=== PATIENT | male | born 1955 | race African-American/Black ===

== ENCOUNTER 2024-12-21 17:08 | Inpatient (IN) | payer BC, OTHER ==
[~2024-12-21] VITALS: Ht 167.6 cm; Wt 108.9 kg
[2024-12-21 20:19] LABS: PLATELET COUNT (AUTO) 252 K/uL (152-348); RED BLOOD CELL COUNT(AUTO) 4.50 MIL/uL (4.06-5.63); RED CELL DISTRIBUTION WIDTH 13.6 % (12.1-16.2); WHITE BLOOD COUNT (AUTO) 13.2 K/uL (3.6-10.2)
[2024-12-21 20:29] LABS: CREATININE 0.9 mg/dL (0.6-1.3); SODIUM SERUM 138.0 mmol/L (136-145); UREA NITROGEN, BLOOD 10.0 mg/dL (7-18)
[2024-12-21 20:35] LABS: ASPARTATE AMINOTRANSFERASE 11.0 U/L (15-37); TOTAL PROTEIN, SERUM 6.4 g/dL (6.4-8.2)
[2024-12-21] MEDS: IV NS 1000 ML 1,000 ML IV ONE (21:21)
[2024-12-21 21:52] LABS: ABG BASE EXCESS 1.0 mmol/L (-2.0-3.0); ABG HCO3 25.8 mmol/L (21.0-28.0); ABG PCO2 41.8 mmHg (35.0-48.0); ABG PH 7.409 (7.350-7.450); ABG PO2 76.5 mmHg (83.0-108.0); ABG SITE LEFT RADIAL; ABG TOTAL HEMOGLOBIN 14.2 G/dL (13.5-17.5); AaDO2 95.4 mmHg; FIO2 21.0 %
[2024-12-21 21:58] LABS: ETHANOL < 3 MG/DL (0-10)
[2024-12-21 22:19] LABS: *BILIRUBIN,URIN NEGATIVE (NEGATIVE); *BLOOD, URINE NEGATIVE (NEGATIVE); *CLARITY,URINE CLEAR (CLEAR); *COLOR,URINE YELLOW (YELLOW); *KETONES,URINE TRACE (NEGATIVE); *PROTEIN,URINE NEGATIVE (NEGATIVE); *UROBILINOGEN,URINE 0.2 E.U./dl (NORMAL); LEUKOCYTE ESTERASE ,URINE NEGATIVE (NEGATIVE); NITRITE, URINE NEGATIVE (NEGATIVE)
[2024-12-21 22:27] LABS: *AMPHETAMINE, URINE NEGATIVE (NEGATIVE); *BARBITURATE, URINE NEGATIVE (NEGATIVE); *BENZODIAZEPINE, URINE NEGATIVE (NEGATIVE); *CANNABINOID, URINE NEGATIVE (NEGATIVE); *COCCAINE, URINE POSITIVE (NEGATIVE); *OPIATE, URINE NEGATIVE (NEGATIVE); *PHENCYCLIDINE SCREEN,URINE NEGATIVE (NEGATIVE); FENTANYL, URINE NEGATIVE (NEGATIVE)
[2024-12-21 22:31] LABS: UGLUCOSE 2+ (NEGATIVE)
[2024-12-21 22:55] LABS: SQUAMOUS EPITHELIAL CELL,UR FEW /HPF (NONE SEEN)
[2024-12-21 22:57] LABS: URINE AMORPHOUS URATE FEW /HPF
[2024-12-22] VITALS (10 sets, daily range): BP systolic 139–148; BP diastolic 78–89; TEMP 97.5–98; O2SAT 95–100
[2024-12-22] MEDS ORDERED: ALBUTEROL SULFATE 2.5 MG/3 ML NEBU ONE (04:18)
[2024-12-22] MEDS ORDERED: ACETAMINOPHEN 325 MG TABLET PO PRN (05:45)
[2024-12-22] MEDS ORDERED: ONDANSETRON 4 MG/2 ML VIAL IV PRN (05:45)
[2024-12-22] MEDS ORDERED: MAGNESIUM HYDROXIDE 30 ML LIQUID UDC PO PRN (05:45)
[2024-12-22] MEDS ORDERED: ALBU8.5H8 IH (05:59)
[2024-12-22] MEDS: ALBUTEROL SULFATE 2.5 MG/3 ML NEBU NEB ONE (06:11)
[2024-12-22] MEDS: PANTOPRAZOLE SODIUM 40 MG TABLET.DR PO SCH (06:38)
[2024-12-22 07:32] LABS: PLATELET COUNT (AUTO) 239 K/uL (152-348); RED BLOOD CELL COUNT(AUTO) 4.50 MIL/uL (4.06-5.63); RED CELL DISTRIBUTION WIDTH 13.6 % (12.1-16.2); WHITE BLOOD COUNT (AUTO) 12.7 K/uL (3.6-10.2)
[2024-12-22 07:47] LABS: ASPARTATE AMINOTRANSFERASE 13.0 U/L (15-37); CREATININE 0.9 mg/dL (0.6-1.3); SODIUM SERUM 137.0 mmol/L (136-145); TOTAL PROTEIN, SERUM 7.0 g/dL (6.4-8.2); UREA NITROGEN, BLOOD 14.0 mg/dL (7-18)
[2024-12-22] MEDS: IPRATROPIUM BROMIDE 0.5 MG/2.5 ML NEBU NEB PRN (08:24)
[2024-12-22] MEDS: ALBUTEROL SULFATE 2.5 MG/3 ML NEBU NEB PRN (08:24)
[2024-12-22] MEDS: GUAIFENESIN LA 600 MG TABLET.SA PO SCH (10:05)
[2024-12-22] MEDS: ENOXAPARIN SODIUM 40 MG/0.4 ML DISP.SYRIN SQ SCH (10:06)
[2024-12-22] MEDS: AZITHROMYCIN 250 MG TABLET PO ONE (10:55)
[2024-12-22] MEDS: CEFTRIAXONE 1 G in IV DEXTROSE 5% 50 ML IV SCH (12:33)
[2024-12-22] MEDS: IPRATROPIUM BROMIDE 0.5 MG/2.5 ML NEBU NEB SCH (13:26)
[2024-12-22] MEDS: ALBUTEROL SULFATE 1.25 MG/3 ML NEBU NEB SCH (13:27)
[2024-12-22] MEDS: NEUTRA PHOS PACKET PO ONE (17:48)
[2024-12-22] MEDS: NICOTINE 21 MG/24HR PATCH TD SCH (18:42)
[2024-12-23] MEDS ORDERED: AZITHROMYCIN 250 MG TABLET PO SCH (09:00)
== END 2024-12-22 19:55 | disposition home or self-care (01) | DRG 190 ==
LOC: ER 17:08 → TELE3 12-22 05:50
PROVIDERS: ADMIT Nurse Practitioner Family; ATTEND Student in an Organized Health Care Education/Training Program
DX: J44.1 Chronic obstructive pulmonary disease with (acute) exacerbation (principal); J18.9 Pneumonia, unspecified organism; J44.0 Chronic obstructive pulmonary disease with (acute) lower respiratory infection; J20.9 Acute bronchitis, unspecified; E66.9 Obesity, unspecified; Z68.39 Body mass index [BMI] 39.0-39.9, adult; Z53.29 Procedure and treatment not carried out because of patient's decision for other reasons; F14.10 Cocaine abuse, uncomplicated; R94.6 Abnormal results of thyroid function studies
CPT/HCPCS: 36415; 36600; 70030-TC; 71045; 82803; 83735; 84100; 84443; 84484; 85025; 87070; 93307; 94640; 94760; A4606; A4663; G0378; G0480; J0696; J1650; J2919; J3590; J7040; Q0144

== ENCOUNTER 2025-04-11 07:31 | Emergency (ER) | payer BC, OTHER ==
[~2025-04-11] VITALS: Ht 180.3 cm; Wt 105.2 kg
[~2025-04-11 07:31] MED LIST: ALBU8.5H8 IH
[2025-04-11 07:35] VITALS: BP 127/80
[2025-04-11] MEDS ORDERED: PERM60CR TP (08:20)
[2025-04-11] MEDS ORDERED: ALBU6.7H9 INH (08:20)
[2025-04-11] MEDS ORDERED: HYDR30OI5 TP (08:20)
[2025-04-11] MEDS ORDERED: NICO1PAT35 TP (08:20)
[2025-04-11] MEDS ORDERED: BUDE10.2 INH (08:20)
[2025-04-11] MEDS ORDERED: IVER3TAB2 PO (08:20)
[2025-04-11 08:58] VITALS: BP 127/80; TEMP 98; O2SAT 95
[2025-04-17] MEDS ORDERED: TRIA60LO17 TP (22:41)
== END 2025-04-11 08:30 | disposition home or self-care (01) ==
LOC: ER 07:31
DX: B86 Scabies (principal); L30.9 Dermatitis, unspecified; F17.200 Nicotine dependence, unspecified, uncomplicated; J45.909 Unspecified asthma, uncomplicated; Z71.6 Tobacco abuse counseling; Z79.51 Long term (current) use of inhaled steroids; Z88.2 Allergy status to sulfonamides; Z79.899 Other long term (current) drug therapy
CPT/HCPCS: A4606; A4663

== ENCOUNTER 2025-04-17 21:04 | Emergency (ER) | payer BC, OTHER ==
[~2025-04-17] VITALS: Ht 180.3 cm; Wt 106.1 kg
[~2025-04-17 21:04] MED LIST changes: +ALBU6.7H9 INH; +BUDE10.2 INH; +HYDR30OI5 TP; +IVER3TAB2 PO; +NICO1PAT35 TP; +PERM60CR19 TP
[2025-04-17 21:25] VITALS: BP 152/93
[2025-04-17] MEDS ORDERED: DEXAMETHASONE SOD PHOSPHATE 4 MG INJ ONE (22:03)
[2025-04-17] MEDS ORDERED: IPRATROPIUM BROMIDE 0.5 MG/2.5 ML NEBU ONE ×2 (22:04→22:12)
[2025-04-17] MEDS ORDERED: ALBUTEROL SULFATE 2.5 MG/3 ML NEBU ONE ×2 (22:04→22:12)
[2025-04-17 22:10] VITALS: O2SAT 95
[2025-04-17] MEDS: DEXAMETHASONE SOD PHOSPHATE 4 MG INJ IM ONE (22:12)
[2025-04-17 22:25] VITALS: O2SAT 98
[2025-04-17] MEDS ORDERED: AZITHROMYCIN 250 MG TABLET ONE (22:35)
[2025-04-17] MEDS: AZITHROMYCIN 250 MG TABLET PO ONE (22:36)
[2025-04-17 22:40] VITALS: BP 149/90; O2SAT 97
[2025-04-17] MEDS ORDERED: TRIA60LO7 TP (22:41)
[2025-04-17] MEDS: ALBUTEROL SULFATE 2.5 MG/3 ML NEBU NEB ONE (23:06)
[2025-04-17] MEDS: IPRATROPIUM BROMIDE 0.5 MG/2.5 ML NEBU NEB ONE (23:06)
== END 2025-04-17 22:59 | disposition home or self-care (01) ==
LOC: ER 21:27
DX: L30.9 Dermatitis, unspecified (principal); R05.9 Cough, unspecified; N48.89 Other specified disorders of penis; J45.909 Unspecified asthma, uncomplicated; Z79.51 Long term (current) use of inhaled steroids; Z88.2 Allergy status to sulfonamides
CPT/HCPCS: 99283; 94640; 96372; J1100; A4606; A4663; J3590; Q0144